=== PATIENT | female | born 1945 | race Caucasian/White ===

== ENCOUNTER 2019-06-25 10:31 | Emergency (ER) | payer MEDICARE ==
[~2019-06-25] VITALS: Ht 167.6 cm; Wt 63.6 kg
[2019-06-25 10:56] VITALS: BP 173/73
[2019-06-25] MEDS ORDERED: CYCL-1 PO (11:35)
[2019-06-25] MEDS ORDERED: ketorolac tromethamine 15mg/ml inj. IM ONE (11:35)
== END 2019-06-25 12:44 | disposition home or self-care (01) ==
LOC: ER 10:31
DX: M54.5 Low back pain (principal); I10 Essential (primary) hypertension; M06.9 Rheumatoid arthritis, unspecified; Z88.0 Allergy status to penicillin; Z88.5 Allergy status to narcotic agent
CPT/HCPCS: 72100; 96372; 99284; J1885

== ENCOUNTER 2021-08-25 07:28 | Day surgery (SDC) | payer MEDICARE ==
[2021-08-18 15:24] LABS: BASOPHILS # (AUTO) 0.1 X10'3 (0-0.2); BASOPHILS % (AUTO) 1.2 % (0-1); EOSINOPHILS # (AUTO) 0.3 X10'3 (0-0.9); EOSINOPHILS % (AUTO) 7.2 % (0-6); LYMPHOCYTES # (AUTO) 1.2 X10'3 (1.1-4.8); LYMPHOCYTES % (AUTO) 25.9 % (21-51); MEAN CORPUSCULAR HEMOGLOBIN 32.4 PG (27.0-31.0); MEAN CORPUSCULAR HGB CONC 33.1 g/dL (33.0-36.5); MEAN CORPUSCULAR VOLUME 97.8 FL (78-98); MEAN PLATELET VOLUME 8.4 FL (7.4-10.4); MONOCYTES # (AUTO) 0.6 X10'3 (0-0.9); MONOCYTES % (AUTO) 12.7 % (2-12); NEUTROPHILS # (AUTO) 2.6 X10'3 (1.8-7.7); PRE OP HEMATOCRIT 45.1 % (35.0-45.0); PRE OP HEMOGLOBIN 14.9 g/dL (12.0-16.0); PRE OP PLATELET COUNT 180 X10'3 (140-440); RED BLOOD COUNT 4.61 X10'6 (4.20-5.60); RED CELL DISTRIBUTION WIDTH 15.9 % (11.5-14.5)
[2021-08-18 15:43] LABS: ALBUMIN 3.9 G/DL (3.4-5.0); ALKALINE PHOSPHATASE 123 IU/L (46-116); BLOOD UREA NITROGEN 15 MG/DL (7-18); BUN/CREATININE RATIO 15.6 (6.6-38.0); CALCIUM 9.1 MG/DL (8.5-10.1); CHLORIDE 106 MMOL/L (99-107); CREATININE 0.96 MG/DL (0.40-0.90); PRE OP ALT 18 U/L (30-65); PRE OP ANION GAP 11 (8-16); PRE OP AST 20 U/L (10-37); PRE OP BILIRUB, TOTAL 0.5 MG/DL (0.0-1.0); PRE OP GLUCOSE 99 MG/DL (70-104); PRE OP SODIUM 144 MMOL/L (135-145); TOTAL CARBON DIOXIDE 26.6 MMOL/L (24-32); TOTAL PROTEIN 7.8 G/DL (6.4-8.2); eGFR 57 ML/MIN
[~2021-08-25] VITALS: Ht 165.1 cm; Wt 69.2 kg
[2021-08-25] VITALS (14 sets, daily range): BP systolic 137–155; BP diastolic 68–79
[~2021-08-25 07:28] MED LIST: ALEN70TA60 PO; AMLO5TAB PO; BUPIVAcaine 0.5% inj/PF 30 ML ONE; CYAN100097 SQ; DOCUMENT DATE & TIME OF BETA-BLOCKER PO ONE; INDOCYANINE GREEN 25 MG/10 ML VIAL IV ONE; LEVO75TA PO; LIDOcaine 1% 30ml preserv. free vial ONE; LISI40TA13 PO; METH2.5T PO; METO100T7 PO; clindamycin-Cleocin 900mg/D5W 50 ML IV ONE; famotidine 20mg tablet PO ONE; ringers solution, lacted 1,000 ML IV SCH
[2021-08-25] MEDS ORDERED: BUPIVAcaine 0.5% inj/PF 30 ml vial IJ ONE (07:50)
[2021-08-25] MEDS ORDERED: ATEN100T PO (08:23)
[2021-08-25] MEDS ORDERED: ondansetron/PF 4mg/2ml inj IV PRN (09:10)
[2021-08-25] MEDS ORDERED: morphine 4 MG/ML inj SYRINge IV PRN (09:10)
[2021-08-25] MEDS ORDERED: proCHLORperazine 10 MG/2 ml inj IV PRN (09:10)
[2021-08-25] MEDS ORDERED: meperidine/PF 25mg/ml syringe IV PRN ×3 (09:10)
[2021-08-25] MEDS ORDERED: morphine 2 MG/ML inj. syringe IV PRN (09:10)
[2021-08-25] MEDS ORDERED: ringers solution, lacted 1,000 ML IV SCH (09:10)
[2021-08-25] MEDS ORDERED: midazolam 1 mg/ML 2ml injection ONE (10:05)
[2021-08-25] MEDS ORDERED: FENTANYL CITRATE/PF 50 MCG/1 ML VIAL ONE (10:05)
[2021-08-25] MEDS ORDERED: dexamethasone sod phosphate 4mg/ml inj. ONE (10:28)
[2021-08-25] MEDS ORDERED: rocuronium 10mg/ml inj IV ONE (10:28)
[2021-08-25] MEDS ORDERED: propofol inj 20 ML IV ONE (10:28)
[2021-08-25] MEDS ORDERED: ondansetron/PF 4mg/2ml inj ONE (11:08)
[2021-08-25] MEDS ORDERED: glycopyrrolate 0.2mg/ml inj ONE (11:10)
[2021-08-25] MEDS ORDERED: neostigmine methylsulfate 1 MG/ML 10ml vial ONE (11:10)
--- NOTE | 2021-08-25 11:29 | NUR ---
Received from OR via [facility] IN STABLE CONDITION , accompanied by Anesthesiologist and UPSETTER HELPER report given by UPSETTER HELPER AND Anesthesiolgist. Addendum: 08/25/21 at 1138 by Lorri Bolivar RN Amended: Links added.
[2021-08-25] MEDS ORDERED: HYDROcodone/acetaminophen 5mg/325mg tablet PO PRN (11:30)
[2021-08-25] MEDS ORDERED: acetaminophen 1,000mg/100ml IV 100 ML IV STA (13:05)
--- NOTE | 2021-08-25 13:49 | NUR ---
PATIENT DISCHARGED FROM PACU IN STABLE CONDITION AFTER WRITTEN AND VERBAL DISCHARGE INSTRUCTIONS GIVEN. PATIENT GAVE VERBAL UNDERSTANDING OF INSTRUCTIONS GIVEN. PATIENT LEFT FACILITY VIA WHEELCHAIR WITH RN.. Addendum: 08/25/21 at 1407 by Lorri Bolivar RN Amended: Links added.
== END 2021-08-25 13:49 | disposition home or self-care (01) ==
LOC: PAS 07:28
PROVIDERS: ATTEND Surgery
DX: K80.12 Calculus of gallbladder with acute and chronic cholecystitis without obstruction (principal); I10 Essential (primary) hypertension; E03.9 Hypothyroidism, unspecified; M85.80 Other specified disorders of bone density and structure, unspecified site; M06.9 Rheumatoid arthritis, unspecified; Z79.899 Other long term (current) drug therapy; Z20.822 Contact with and (suspected) exposure to COVID-19; Z88.0 Allergy status to penicillin; Z88.5 Allergy status to narcotic agent; Z72.89 Other problems related to lifestyle; Z98.890 Other specified postprocedural states; Z82.3 Family history of stroke; Z80.49 Family history of malignant neoplasm of other genital organs; Z82.61 Family history of arthritis
CPT/HCPCS: 36415; 47563; 80053; 82948; 85025; 93005; J0131; J1100; J2250; J2405; J2704; J2710; J3010; J3490; J7030; J7120; S0020; U0003; U0005; Z7506; Z7508; Z7512; 88304; A4215; A4618; A7000